=== PATIENT | male | born 1975 | race American Indian/Alaskan Native ===

== ENCOUNTER 2017-10-03 01:39 | Emergency (ER) | payer OTHER ==
[2017-10-03] MEDS ORDERED: PERCOCET 5/325 PO ONE (04:39)
--- NOTE | 2017-10-03 04:45 | Emergency Department Report ---
ED Extremity Problem HPI - General Chief complaint: Extremity Injury, Lower Stated complaint: L HIP PAIN Time Seen by Provider: 10/03/17 04:36 Source: patient, EMS Mode of arrival: Stretcher Limitations: No Limitations - History of Present Illness Initial comments: Patient presents with left hip and lower back pain as a result of forklift accident at work shortly prior to arrival. 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 He was able walk briefly, but had increasing pain, and had to stop, necessitating EMS: Transport here for further care. He has left anterior pelvic pain, as well as left posterior sacral pain. He has minimal abdominal discomfort, no nausea or vomiting, no difficulty with sensation of urgency urinate or void, and no genitourinary trauma. He has no weakness in his left lower extremity, no loss of use, but simply is unable to walk on it due to pain in the left pelvis and hip area. Gen. health is good, patient takes no routine medications, and has no allergies. MD Complaint: extremity pain -: Sudden, hour(s) History of Same: No (1-2) Radiation: none - Related Data Previous Rx's Medication Instructions Recorded Last Taken Type Oxycodone HCl/Acetaminophen 1 each PO Q6HR PRN #50 tablet 10/03/17 Unknown Rx [Percocet 7.5/325 mg] Allergies Allergy/AdvReac Type Severity Reaction Status Date / Time No Known Allergies Allergy Unverified 10/03/17 02:11 ED Review of Systems ROS: Stated complaint: L HIP PAIN Other details as noted in HPI ED Past Medical Hx - Past Medical History Previous Medical History?: No - Surgical History Past Surgical History?: No - Social History Smoking Status: Current Every Day Smoker Substance Use Type: Alcohol - Medications Home Medications: Home Medications Medication Instructions Recorded Confirmed Last Taken Type Oxycodone HCl/Acetaminophen 1 each PO Q6HR PRN #50 tablet 10/03/17 Unknown Rx [Percocet 7.5/325 mg] ED Physical Exam - General Limitations: No Limitations General appearance: in distress - Head Head exam: Present: atraumatic, normocephalic - Eye Eye exam: Present: PERRL, EOMI - ENT ENT exam: Present: mucous membranes moist - Neck Neck exam: Present: normal inspection - Respiratory Respiratory exam: Present: normal lung sounds bilaterally. Absent: respiratory distress - Cardiovascular Cardiovascular Exam: Present: regular rate, normal rhythm. Absent: systolic murmur, diastolic murmur, rubs, gallop - GI/Abdominal GI/Abdominal exam: Present: soft, normal bowel sounds. Absent: tenderness, guarding, rebound - Rectal Rectal exam: Present: deferred - exam: Present: normal inspection. Absent: testicular tenderness, scrotal swelling - Extremities Exam Extremities exam: Present: full ROM, tenderness (left anterior pelvis, no significant hip pain on left, nontender on right), other (tender to palpation left anterior pelvis, moderate to severe, minimal tenderness to palpation left hip area, moderate tenderness with contusion left mid sacral area.). Absent: pedal edema - Back Exam Back exam: Present: tenderness (left mid sacral area with contusion, nontender on right side. No lumbar bony tenderness). Absent: CVA tenderness (R), CVA tenderness (L) - Neurological Exam Neurological exam: Present: alert, oriented X3, CN II-XII intact, abnormal gait (unable to walk due to pain). Absent: motor sensory deficit - Psychiatric Psychiatric exam: Present: normal affect, normal mood ED Course Vital Signs 10/03/17 10/03/17 10/03/17 02:12 04:01 05:00 Temperature 98.7 F Pulse Rate 70 Respiratory 16 Rate Blood Pressure 118/70 114/73 128/72 Blood Pressure 118/70 [Left] O2 Sat by Pulse 96 97 97 Oximetry - Reevaluation(s) Reevaluation #1: 10/03/17 05:06 Patient refused IV contrast for CT scan of pelvis, initially over concern over length of time for examination, but after explanation of possible complications of IV contrast dye use, also becomes focused on possibility of adverse reaction with kidney injury as well. Although I advised this is suboptimal, we will scan patient's pelvis without contrast and treat on basis of findings from there. Reevaluation #2: 10/03/17 07:22 Patient clinically stable on repeat examination; findings discussed and patient given crutch training. ED Medical Decision Making - Radiology Data Radiology results: report reviewed (inferior and superior left pelvic rami fractures, CT scan shows no signs of intrapelvic vascular injury) - Medical Decision Making Patient has a clinically stable fracture and is stable for discharge home, but in any case adamantly refuses admission for pain control and comfort. Crutch training provided, instructed in non weight bearing, control of pain, stool softeners and stimulants to prevent constipation, and to contact work HR to arrange worker comp MD followup. Local construction controller orthopedist Dr. Dayo Juares. - Differential Diagnosis pelvic fracture, hip fracture; vascular injury Critical Care Time: No Critical care attestation.: If time is entered above; I have spent that time in minutes in the direct care of this critically ill patient, excluding procedure time. ED Disposition Clinical Impression: Pelvic ring fracture Qualifiers: Encounter type: initial encounter Fracture type: closed Qualified Code(s): S32.810A - Multiple fractures of pelvis with stable disruption of pelvic ring, initial encounter for closed fracture Disposition: TO HOME OR SELFCARE Is pt being admited?: No Does the pt Need Aspirin: No Condition: Stable Instructions: Pelvic Fracture (ED), Crutch Instructions (ED), Laxative, Stimulant Combination (By mouth), Laxative, Stool Softeners (By mouth) Additional Instructions: We are prescribing hydrocodone for pain, and you may take one tablet every 4 to 6 hours. For severe exacerbations, you can take a double dose of pain medication, but do not take this regularly. You are to use crutches at all times and you may not place any weight on your left leg. You may be up and around at home as long as you use your crutches regularly. No work for the next two weeks at least, and you should expect to be out from work for longer than this, but this will be determined by your worker comp doctor. Contact work at the beginning of the week to make arrangements for followup with this doctor. If you need to see a private orthopedist, our construction controller orthopedist is Dr. Henrry Juares, telephone [phone] We have given you copies of your Xrays on computer disk; BE SURE TO TAKE THIS XRAY DISK WITH YOU TO ANY DOCTOR FOLLOWUP. You can also become constipated from use of narcotics on a regular basis. We recommend stool softeners on a REGULAR DAILY basis to prevent constipation. Fiber supplements are the best first step, and this includes high fiber leafy green vegetables. You can also take Miralax, and a usual daily dose is 17 grams, or one capful or one packet. Metamucil will also soften stool Stimulants such as Sennakot can help promote regular bowel movements; follow the directions on the packaging. You should have a regular bowel movement daily, but it is OK to go as long as two days without a bowel movement, but you should take a stimulant if you have not had a bowel movement for two days. We recommend a bottle of magnesium citrate to stimulate bowel movements. All of these medicines are available at your pharmacy or grocery store and do not require a prescription. Prescriptions: Oxycodone HCl/Acetaminophen [Percocet 7.5/325 mg] 1 each PO Q6HR PRN #50 tablet PRN Reason: Pain Referrals: PRIMARY CARE, [Primary Care Provider] - 3-5 Days Forms: Work/School Release Form(ED) Time of Disposition: 07:33
[2017-10-03 04:48] LABS: Amphetamine Screen,Urine PRESUMPTIVE NEGATIVE; Benzodiazepines Screen,Urine PRESUMPTIVE NEGATIVE; Cannabinoid Screen,Urine PRESUMPTIVE NEGATIVE; Cocaine Screen,Urine PRESUMPTIVE NEGATIVE; Methadone Screen,Urine PRESUMPTIVE NEGATIVE; Opiate Screen,Urine PRESUMPTIVE NEGATIVE
[2017-10-03] MEDS ORDERED: ROXICODONE PO ONE (08:06)
[2017-10-03 08:52] VITALS: BP 105/70
--- NOTE | 2017-10-04 14:29 | Cat Scan Report ---
FINAL REPORT EXAM: CT PELVIS WO CON HISTORY: Pelvic fracture, eval sacral or vasc injury. TECHNIQUE: Unenhanced axial CT images of the bony pelvis were obtained, with sagittal and coronal reformatted images. Correlation is made with radiographs of the bony pelvis 10/02/2017. FINDINGS: There is a comminuted, predominantly vertical fracture at the junction of the left superior pubic ramus and left acetabulum. There is intra-articular extension of fracture lines at the anterior-inferior acetabulum, as well as the medial-inferior acetabulum. There is also a nondisplaced fracture at the left inferior pubic ramus. No other fracture is identified. Specifically, no fracture is identified in the sacrum, as clinically questioned. There is minimal degenerative change at both hips. There is minimal subcutaneous soft tissue stranding/edema in the left inguinal region, along the medial aspect of the quadriceps muscle groups. There is no abnormal soft tissue masses suggest hematoma. Evaluation of the vasculature is limited without intravenous contrast. There is a 0.6 cm well-circumscribed radiolucency at the junction of the left anterior femoral head and neck, with the appearance of incidental synovial herniation pit. A 3.4 cm rounded sclerotic focus is seen in the left iliac bone, adjacent to the anterior left sacroiliac joint. This is nonspecific, but metastatic disease is a consideration. There is no adjacent abnormal soft tissue mass or periosteal reaction. The unopacified urinary bladder is not fully distended, and wall thickening cannot be evaluated. The prostate gland is normal in size. No free or loculated fluid collection is seen in the pelvis. IMPRESSION: 1. Comminuted fractures involving the left superior pubic ramus and left acetabulum, with intra-articular extension to the anterior-inferior and medial-inferior acetabulum. 2. Nondisplaced fracture of the left inferior pubic ramus. No other fracture identified. 3. 3.4 cm rounded sclerotic lesion in the left iliac bone, nonspecific. Metastatic disease is a consideration, and nuclear medicine bone scan should be considered for further evaluation.
--- NOTE | 2017-10-04 14:29 | XRay Report ---
FINAL REPORT EXAM: XR HIP 2-3V LT HISTORY: Left hip pain post trauma. TECHNIQUE: A single frontal radiograph the pelvis and 2 additional radiographs of the left hip were obtained. No prior studies are available for comparison. FINDINGS: There is a fracture of the left inferior pubic ramus. There is an additional minimally displaced vertical fracture involving the medial aspect of the left superior pubic ramus, adjacent to the left medial hip acetabulum. No other fracture is seen. There is no dislocation. There is minimal bilateral superior hip joint space narrowing. No other discrete osseous abnormality is seen. Multiple calcified phleboliths are seen in the pelvis. There are surgical clips in the right inguinal region and medial right thigh. IMPRESSION: Fractures of the left inferior and left superior pubic rami, as described.
== END 2017-10-03 08:53 | disposition home or self-care (01) ==
LOC: ED 01:39
DX: S32.810A Multiple fractures of pelvis with stable disruption of pelvic ring, initial encounter for closed fracture (principal); F17.200 Nicotine dependence, unspecified, uncomplicated; V83.9XXA Unspecified occupant of special industrial vehicle injured in nontraffic accident, initial encounter; Y93.89 Activity, other specified; Y99.8 Other external cause status; Y92.89 Other specified places as the place of occurrence of the external cause
CPT/HCPCS: 72192; 80307